=== PATIENT | male | born 1950 | race Caucasian/White ===

== ENCOUNTER → 2017-02-22 | Outpatient (CLI) | payer BC ==
[~2017-02-22] MED LIST: OPTIRAY 320 IV PRN
--- NOTE | 2017-02-22 08:40 | DIAGNOSTIC IMAGING REPORT ---
CT SOFT TISSUE NECK WITH CT DOSE: 610.95 mGy.cm CLINICAL HISTORY: Right neck mass. Chronic lymphadenitis. TECHNIQUE: Helical images were acquired during intravenous administration of 91 cc of Optiray 320. COMPARISON STUDY: None. FINDINGS: The visualized portions of the lung apices are unremarkable. No thyroid masses are visualized. No salivary gland masses are visualized. There is a 4 x 2.5 x 2 cm right submandibular mass, abutting the sternocleidomastoid, internal jugular vein, and submandibular gland. This likely represents a thea mass. Biopsy is recommended in follow-up. There are no fluid collections suspicious for abscess. There is no evidence of airway compromise. There is minor asymmetry in the region the right posterior tongue base/tonsillar region. Given the possible pathologic right neck node, direct visualization should be considered. IMPRESSION: 4 x 2.5 x 2 cm right neck mass, likely representing a thea mass. ENT consultation and biopsy is recommended. Electronically signed by: Brijesh Harrell M.D. 02/22/2017 8:39 AM Dictated Date/Time: 02/22/2017 8:31 AM
== END | disposition home or self-care (01) ==
LOC: C.CTS 07:58
PROVIDERS: ATTEND Family Medicine
DX: I88.1 Chronic lymphadenitis, except mesenteric (principal); R22.1 Localized swelling, mass and lump, neck

== ENCOUNTER → 2018-01-10 | Outpatient (CLI) | payer OTHER | END | disposition home or self-care (01) | LOC: C.PATHSPEC 16:14 | PROVIDERS: ATTEND Dermatology | DX: L82.1 Other seborrheic keratosis (principal) ==